=== PATIENT | female | born 1985 | race Caucasian/White ===

== ENCOUNTER 2017-12-16 10:12 | Outpatient (RCR) | payer MEDICAID, SELFPAY ==
[2017-12-16 11:07] VITALS: BP 121/76; PULSE 86; RESP 18; TEMP 36.8; BMI 23.1
--- NOTE | 2017-12-16 15:20 | PCM.WC.PN ---
Type of Wound Date of Service: 12/16/17 Chief Complaint: Nonhealing infected MRSA abscess ulcer right upper back. History of Wound: Surgery 11/12/17 - Surgical preparation right upper back with incision and drainage and excisional debridement including underlying muscle nonhealing infected ulcer abscess (33 cm2). Wound care - VAC. Operative culture - MRSA. She was discharged on Doxycycline. Pathology - abscess formation and no carcinoma seen. Prealbumin from 11/13/17 was 21.7. Encourage nutritional supplementation with protein to help the healing process. Today she denies fever. Her appetite is ok. Progress of Wound: Improved. - Physical Exam Vital Signs Temp Pulse Resp BP 98.2 F 86 18 121/76 H 12/16/17 11:07 12/16/17 11:07 12/16/17 11:07 12/16/17 11:07 Wound Measurements and Assessment - Nurse 1 - General Ulcer Measurement Start: 12/16/17 11:06 Freq: Status: Active Protocol: Activity Type Activity Date Activity User E-Sign Co-Sign Detail Recorded Client Recorded Date Recorded By Document 12/16/17 11:07 DV [id number] 12/16/17 11:36 DV 12/16/17 11:07 Wound Center Nurse 1 [Ulcer Assessment Protocol: WC.WD.LOC] #1 Right Upper Back -Combined with other wound No -Current Size (cm) - Length 3.0 -Current Size (cm) - Width 4.8 -Current Size (cm) - Depth 0.7 -Total Square Cm 14.40 -Date of Last Picture (Recall this 12/16/17 field) -Photo Taken Yes -Epithelialization Small 1-33% -Tunneling Yes -Tunneling Position (O'clock) 7 -Tunneling Distance (cm) 0.8 -Undermining/Tunneling No -Circular Undermining No -Classification - Thickness Full Thickness without Exposed Support Structure -Classification - Pressure Ulcer Stage 5 -Exudate Amt Medium (34-66%) -Exudate Type Serosanguineous -Wound Margin Distinct, Outline Attached -Granulation Amt Medium (34-66%) -Granulation Quality Lovell Red -Slough/Fibrin Yes -Necrosis Amt Medium (34-66%) -Necrotic Tissue Type Adherent Slough -Structure Exposed None/Limited to Skin Breakdown -Texture (Rhina-wound Skin Appearance) Assessed Localized Edema Scarring -Moisture (Rhina-wound Skin Appearance Assessed ) Weeping -Color (Rhina-wound Skin Appearance) No Abnormality Assessed -Temperature (Rhina-wound Skin No Abnormality Appearance) (Pt Warm) -Tenderness on Palpation (Rhina-wound No Skin Appearance) -Ulcer Cleansing Wound Cleanser -Foul Odor after Cleansing No -Anesthetic Used 4% Lidocaine Solution [place] - Nurse 2 - General Ulcer CM Notes Start: 12/16/17 11:06 Freq: Status: Active Protocol: Activity Type Activity Date Activity User E-Sign Co-Sign Detail Recorded Client Recorded Date Recorded By Document 12/16/17 12:06 ROSALINA [id number] 12/16/17 12:07 12/16/17 12:06 Wound Center Nurse 2 [Procedure/Treatment] -Time 12:07 -Correct Patient Yes -Correct Side, Site, Position Yes -Correct Procedure Yes -Procedure Performed Yes -Type of Procedure Debridement -Clinical Debridement Subcutaneous -Post Debridement Size (cm) - Length 3.1 -Post Debridement Size (cm) - Width 4.8 -Post Debridement Size (cm) - Depth 0.7 -Total Square Cm 14.88 -Wound/Ulcer Outcome Not Healed -Ulcer Cleansing Rinsed/ Irrigated with Saline -Foul Odor after Cleansing No -Bioengineered Tissue No -Cetacaine [place] No -Bleeding Controlled with Pressure -Treatment Response Procedure Tolerated Well [See Physician Procedure note for Specifics] Pain Scale: 0-10 Numeric [Pain] -Is Patient Pain Free? Yes Debridement Note Post-Debridement Measurements/Treatment [place] - Nurse 2 - General Ulcer CM Notes Start: 12/16/17 11:06 Freq: Status: Active Protocol: Activity Type Activity Date Activity User E-Sign Co-Sign Detail Recorded Client Recorded Date Recorded By Document 12/16/17 12:06 JF [id number] 12/16/17 12:07 12/16/17 12:06 Wound Center Nurse 2 #1 Right Upper Back -Time 12:07 -Correct Patient Yes -Correct Side, Site, Position Yes -Correct Procedure Yes -Procedure Performed Yes -Type of Procedure Debridement -Clinical Debridement Subcutaneous -Post Debridement Size (cm) - Length 3.1 -Post Debridement Size (cm) - Width 4.8 -Post Debridement Size (cm) - Depth 0.7 -Total Square Cm 14.88 -Wound/Ulcer Outcome Not Healed -Ulcer Cleansing Rinsed/ Irrigated with Saline -Foul Odor after Cleansing No -Bioengineered Tissue No -Cetacaine [place] No -Bleeding Controlled with Pressure -Treatment Response Procedure Tolerated Well Pain Scale: 0-10 Numeric Is Patient Pain Free? Yes Wound debrided: #1 Right upper back. Laterality: Right Wound Grade/Stage: 2. Type of Debridement: Excisional debridement Anesthesia Used: 4% Lidocaine Solution Depth: Down to and including healthy tissue, in the subcutaneous layer Percentage of wound debrided: 100 Instrument Used: 7mm curette Tissue Removed: subcutaneous tissue. Severity: Fat Layer Exposed Amount of bleeding with debridement: Mild Bleeding Controlled with: Pressure Patient tolerated procedure well Assessment/Plan Assessment: 1. 3 cm nonhealing infected abscess ulcer right upper back. 2. Smoker. 3. MRSA. 4. s/p surgical preparation right upper back with incision and drainage and excisional debridement including underlying muscle nonhealing infected ulcer abscess (33 cm2). Plan: Continue VAC. She is on Doxycycline for MRSA. She was told to get the refill. If there is no refill, will renew the antibiotic. Prealbumin from 11/13/17 was 21.7. Encourage nutritional supplementation with protein to help the healing process. Discussed with the patient that if there is a plateau in the healing process, can proceed with delayed closure and skin grafting. She is aware of that possibility and wants to continue current wound care. Followup 3 weeks. Encouraged the patient to stop smoking as it may have deleterious effects on wound healing.
== END 2017-12-25 23:59 ==
LOC: WC 10:12
PROVIDERS: Family Provider Internal Medicine; PCP Internal Medicine; Visit Provider Surgery
DX: L98.422 Non-pressure chronic ulcer of back with fat layer exposed (principal); L02.91 Cutaneous abscess, unspecified; B95.62 Methicillin resistant Staphylococcus aureus infection as the cause of diseases classified elsewhere; F17.200 Nicotine dependence, unspecified, uncomplicated
CPT/HCPCS: 11042

== ENCOUNTER 2018-01-01 08:25 | Emergency (ER) | payer MEDICAID, SELFPAY ==
[2018-01-01 08:26] VITALS: BP 148/100; PULSE 72; RESP 16; TEMP 36.4; O2SAT 98; BMI 25.0
--- NOTE | 2018-01-01 08:47 | ED.VISSUMM ---
- ER Visit Summary Date of Service: 01/01/18 Chief Complaint: Right flank pain/right lower quadrant pain History of Present Illness: The patient is a 32 F with the above symptoms. It has been ongoing for a couple of days. She describes as a pressure in these areas. She has had associated nausea with vomiting. She denies any dysuria or hematuria. She denies a history of kidney stones. No diarrhea or constipation. Ibuprofen has not been helping. Her temperature is 10 1?F at home today. She denies any previous abdominal surgeries Physical Examination: Vital signs reviewed. HEENT exam unremarkable. Heart is regular rate and rhythm without murmurs. Lungs are clear to auscultation. Abdomen is soft tenderness in the deep right lower quadrant and suprapubic area. Extremities reveal no edema. Skin exam normal. Neurologic exam normal. Test Results: Urinalysis revealed 2+ leukocytes and greater than 100 white blood cells. HCG negative. CAT scan of the flank reveals no stones. Appendix is normal Emergency Department Course and Treatment: She was given intramuscular Toradol and Phenergan here Treatment Plan: She was very cooperative with the examination. Therefore I did obtain a CAT scan which was unremarkable. She does have evidence of UTI which is causing her pain. Patient will be treated with Keflex. I will give her naproxen for home. She will follow up with her PCP Disposition: Discharge Impression: Acute cystitis This note was generated with [employer] dictation software. It may contain incorrect words, spelling, and punctuation that were not noted in review of the chart prior to signing ED Disposition - Plan for ED Patient: Chief Complaint: Flank Pain Referrals: Rosana Powell MD [Primary Care Provider] -
[2018-01-01] MEDS: Ketorolac 60 MG/2 ML Vial IM (08:57)
--- NOTE | 2018-01-01 08:59 | CT_ITS ---
STUDY: CT ABDOMEN AND PELVIS WITHOUT CONTRAST REASON FOR EXAM: Female, 32 years old. Right flank pain x2 days RADIATION DOSAGE (If Supplied By Facility): CTDIvol = ( 7.90 ) mGy, DLP = ( 396.61 ) mGycm TECHNIQUE: Transaxial images were obtained from the dome of the diaphragm to the symphysis pubis without oral contrast, and without intravenous contrast. Sagittal and coronal images were reconstructed. Individualized dose optimization techniques were used for this CT. COMPARISON: None. FINDINGS: The visualized lung bases are unremarkable. The visualized portions of the heart are within normal limits. Normal liver. Normal gallbladder and extrahepatic biliary system. Normal spleen. Normal pancreas. Normal bilateral adrenal glands. Normal right kidney. Normal left kidney. There is a small hiatal hernia. Normal small intestine. Moderate fecal retention throughout the colon. The appendix is visualized and appears normal. Normal abdominal aorta. Normal inferior vena cava. Normal retroperitoneum. Normal urinary bladder. There is absence of the uterus consistent with a prior hysterectomy. Normal abdominal wall. Normal osseous structures. CT/Abdomen/Pelvis without Cont IMPRESSION: No evidence of urolithiasis or renal obstruction. Normal appendix. Significant fecal retention throughout the colon compatible with constipation Electronically Signed: Jakob Velásquez DO at 10:10 EST Tel , Service support ,
[2018-01-01 09:33] LABS: Color, Urine Yellow (Yellow); Glucose, Dipstick Normal (Normal); Ketone-Dipstick 5 mg/dl (Negative); Leukocyte Esterase-Dipstick 500 /ul (Negative); Nitrite-Dipstick Negative (Negative); Occult Blood-Urine 10 /ul (Negative); Protein-Dipstick 30 mg/dl (Negative); Urine Bilirubin Dipstick Negative (Negative); Urine Clarity Sl. Cloudy (Clear); Urine Urobilinogen Normal (Normal); Urine pH 6.5 (5.0 - 8.0)
[2018-01-01 09:36] LABS: Internal QC Validated? YES +Cl - CLEAR BKGD; Pregnancy, Urine Negative Negative
[2018-01-01 09:43] LABS: Bacteria 1+ /hpf (None Seen); Mucous, Urine 2+ /hpf (<or=2+); Red Blood Cells-Urine 5-10 SEEN /hpf (0-5); Squamous Epithelial Cells - UA 0-5 SEEN /hpf (5-10); White Blood Cells >100 SEEN /hpf (0-5)
--- NOTE | 2018-01-01 10:22 | ED.DEP ---
ED Disposition - Plan for ED Patient: Disposition: Home or Assisted Living Chief Complaint: Flank Pain Instructions: ED UTI Cystitis Female Prescriptions: Naproxen [Naprosyn] 500 mg PO BID PRN #20 tab Cephalexin [Keflex] 500 mg PO BID #14 cap Referrals: Rosana Powell MD [Primary Care Provider] -
[2018-01-01 10:31] VITALS: BP 123/78; PULSE 59; RESP 16; O2SAT 98
--- NOTE | 2018-01-01 11:03 | ED.RN ---
PT REFUSED TO LEAVE AFTER BEING DISCHARGED. PT WAS ASKED BY MULTIPLE STAFF MEMBER AND CONTINUED TO STAY IN THE BED UNTIL TOLD SHE WAS NOT GETTING ANY MORE MEDICATIONS. PT WAS ANGRY AND CUSSING BECAUSE SHE WAS IN PAIN BUT GOT OFF THE BED WITHOUT DIFFICULTY. PT THEN GOT DRESSED AND SAT ON THE BED. WHEN I WENT IN [place] 5 MIN LATER SHE WAS STILL SITTING ON THE BED. SHE WAS TOLD SHE COULD GO MAKE PHONE CALLS AND WAITING IN THE WAITING ROOM SHE SAID ABSOLUTELY NOT. SHE STATED SHE WAS A PATIENT AND WOULD STAY IN THE ROOM LONG SHE WANTED. IT WAS EXPLAINED SHE WAS DISCHARGED AND NEEDED TO GO TO THE WAITING ROOM SHE THREW HER DISCHARGE PAPERS AT ME AND AGAIN REFUSED. SECURITY WAS CALLED. WHEN THEY ARRIVED SHE STILL REFUSED BUT SHORTLY AFTER DID LEAVE WHILE CUSSING SHE WENT DOWN THE [place].
== END 2018-01-01 10:32 | disposition home or self-care (01) ==
PROVIDERS: Emergency Provider Emergency Medicine; Family Provider Internal Medicine; PCP Internal Medicine
DX: N30.00 Acute cystitis without hematuria (principal); Z72.0 Tobacco use
CPT/HCPCS: 74176; 81001; 81025; 96372; 99284